=== PATIENT | female | born 1985 | race Caucasian/White ===

== ENCOUNTER 2016-12-03 20:36 | Emergency (ER) | payer OTHER ==
[~2016-12-03] VITALS: Ht 157.5 cm; Wt 49.0 kg
[~2016-12-03 20:36] MED LIST: GABA600T2 PO
[2016-12-03 21:07] VITALS: BP 121/85; PULSE 83; RESP 16; O2SAT 99
--- NOTE | 2016-12-03 22:25 | ED.REPORT ---
HPI-Head Prob / Injury Date of Service Dec 03, 2016 ED Provider: Dr. Raphael Borges Patient is a 31 year old female who presents to the ED complaining of left eye pain secondary to a sports injury that occurred earlier this afternoon. She was reportedly playing catch with her family when a baseball hit her left judaism. Associated symptoms include lightheadedness, eye pressure, disorientation, headache, dizziness, blurred vision that she describes as a "drape being pulled down". Her initial visual disturbance resolved after 10 minutes, however, she is currently experiencing "green dots" in her peripheral vision. She denies any LOC or vomiting following the incident. Nursing Notes Stated Complaint: HIT IN FACE?RASTAFARI W/ BASEBALL Chief Complaint: Head, Face, Neck Trauma Nursing Notes Reviewed: Yes Allergies: Coded Allergies: No Known Allergies (Unverified , 12/03/16) Scheduled Gabapentin (Gabapentin) 600 Mg Tablet 600 MG PO TID General Time Seen by Provider: 22:29 Chief Complaint Other (Head Injury ) Hx Obtained From: Patient Arrived By: Walk-in Onset Occurred: 9 - 12 hours ago Symptom Duration: 1 - 15 minutes (10 min) Progression Since Onset: Gradually improving Location: : Temporal region L Quality: Painful Severity: Current: Mild Severity: Maximum: Moderate Associated with: Reports: Disorientation, Dizziness, Headache Pertinent Negative: Pt denies other symptoms Recent Healthcare: No recent doctor visit, No recent hospitalization Risk-Head Prob / Injury )( IC Bleed Risk Strat RF Statements: Risk factors reviewed Past Medical History Past Medical History Stomach ulcer Asthma Pneumonia Bladder infections Past Surgical History None reported. Smoking History Current Every Day Smoker Social History Alcohol Use: Denies alcohol use Other Social History: Good social support, , Local resident Ambulatory Status Independent Review of Systems Eye pressure Eyes: Reports: Blurred bilateral, Visual loss bilateral GI: Denies: Vomiting Neurologic: Reports: Dizziness, Headache, Lightheaded, Denies: Change LOC Complete sys rev & neg: except as marked. Physical Exam Initial Vital Signs Vital Signs (First) Date Time Temp Pulse Resp B/P Pulse Ox O2 Delivery O2 Flow Rate FiO2 12/03/16 21:07 36.9 83 16 121/85 99 Room Air Extremities: Vascular intact, Neuro intact, No swelling, No tenderness Skin: Warm, Dry, No cyanosis Psychiatric: Mood/affect normal, Behavior normal, Normal thought content General/Constitutional: Awake, Alert, No acute distress, Well appearing, Well developed Head / Eyes: Atraumatic, Normocephalic, PERRL, EOMI (No entrapment ), No nystagmus, No scleral icterus, Conjunctiva NL Eyelids: Negative: Edema L..., Edema R... Periorbital: Positive: Periorbital swelling L..., Periorbital tender L... Trauma - General: Negative: Contusion HEAD/EYES: No damage to the optic disc No vitreal hemorrhage No retinal hemorrhage No cells in within the retina ENT: Atraumatic, Airway patent, Mucous membranes moist, Pharynx NL Neck: Atraumatic, Supple Neurologic: Oriented X3, Speech NL, No motor deficits, No sensory deficits, CN II - XII intact, Reflexes equal bilat Interpretation & Diagnostics CT Head Interpretation IMPRESSION: No acute intracranial process Study: Head CT no contrast Interpretation / Wet Read by: Interpret - Radiologist (Nightshift) Re-Eval/Medical Decision Med Decision/Clinical Course No signs of retinal detachment or hemorrhage. Consult with optho appreciated. Will follow up in the office. Re-Evaluation/Progress : Time of Eval: 23:26 Patient Status: Condition improved Re-Evaluation/Progress Note: Patient is rechecked. She is informed of her results and diagnosis. All questions about the intended treatment plan are addressed. She understands and agrees with the plan. Consultation : Referral / Consult Name: Meng Mahoney MD Consulted With: Rolled Ham Lacer Call Returned at: 23:22 Equipment Operator Wage Hand: Will see patient, Agrees with eval, Agrees with plan, Accepts admit Counseled Regarding: Diagnosis, Lab results, Need for follow-up, When/why to return to ED Discharge & Departure Primary Impression: Concussion Encounter type: initial encounter Loss of consciousness presence/duration: without LOC Qualified Code: S06.0X0A - Concussion without loss of consciousness, initial encounter Additional Impressions: Blunt head trauma Encounter type: initial encounter Qualified Code: S09.8XXA - Other specified injuries of head, initial encounter Ocular trauma of left eye Encounter type: initial encounter Qualified Code: S05.92XA - Unspecified injury of left eye and orbit, initial encounter Disposition: Home All VS Reviewed: Yes Condition: Improved Patient Instructions: Concussion (ED) Additional Instructions: Thank you for trusting us with your care this evening. Your emergency department results including CT are reassuring that there is no dangerous cause for concern at this time. I believe that you may have experienced a concussion. Take 1-2 [place] every 6 hours as needed for pain. Take 1-2 Zofran every 8 hours as needed for nausea. Schedule a follow up appointment with the referred cyber security manager (Dr. Mahoney) for Saturday. Schedule a follow up appointment with your primary care physician in the next week for a recheck. Please return to the emergency department if you begin to develop any new or worsening conditions including any worsening pain, returning "floaters" or visual disturbances. One of the medications you have been prescribed is a narcotic and may cause drowsiness. Please do not drink, drive or use acetaminophen while on this medication. Referrals: NOPCP (PCP) Meng Mahoney MD Attestation Portions of this note were transcribed by Rose Marie Castellanos. I, Dr. Borges personally performed the history, physical exam and medical decision-making; I reviewed and confirmed the accuracy of the information in the transcribed note. Signed by: Rajwinder Hernandez, 12/03/16 [id number]. copies to: Anni Chicas MD, Todd P DO Dec 03, 2016 22:25 ROSE MARIE CASTELLANOS Dec 03, 2016 22:31
[2016-12-03] MEDS ORDERED: HYDROcodone-APAP 5-325 mg Tablet PO ONE (22:40)
[2016-12-03] MEDS ORDERED: _Ondansetron ODT 4 mg Tablet PO PRN (23:35)
[2016-12-03] MEDS ORDERED: _HYDROcodone/APAP 5-325 mg Tablet PO PRN (23:35)
--- NOTE | 2016-12-04 06:58 | DRSVH ---
PROCEDURE: CT BRAIN WITHOUT CONTRAST ([id number]) INDICATIONS: blunt head trauma, vision loss left eye TECHNIQUE: Noncontrast 4.5 mm thick angled axial sections acquired from the foramen magnum to the vertex, with c oronal reformats. COMPARISON: None. FINDINGS: Image quality: Excellent. CSF spaces: Basal cisterns are patent. No extra-axial fluid collections. Ventricles are normal in size and shape. Brain: No midline shift. No intracranial masses or hemorrhage. Castellon-white matter interface is norm al. Skull and face: Calvarium and visualized facial bones are intact, without suspicious lesions. Sinuses: Visualized sinuses and mastoids are clear. IMPRESSION: 1. No CT evidence of acute intracranial pathology. 2. There are no discrepancies with the preliminary report. Dictated by: Rui Sears M.D. on 12/04/2016 at 6:48 Approved by: Rui Sears M.D. on 12/04/2016 at 6:50
== END 2016-12-04 00:02 | disposition home or self-care (01) ==
LOC: SED 20:36
DX: S06.0X0A Concussion without loss of consciousness, initial encounter (principal); S05.8X2A Other injuries of left eye and orbit, initial encounter; W21.03XA Struck by baseball, initial encounter; Y93.64 Activity, baseball; Y92.89 Other specified places as the place of occurrence of the external cause; Y99.8 Other external cause status; J45.909 Unspecified asthma, uncomplicated; F17.200 Nicotine dependence, unspecified, uncomplicated; Z87.01 Personal history of pneumonia (recurrent); Z87.448 Personal history of other diseases of urinary system